=== PATIENT | male | born 1980 | race Caucasian/White ===

== ENCOUNTER 2017-01-14 14:53 | Emergency (ER) | payer BC, OTHER ==
[~2017-01-14] VITALS: Ht 180.3 cm; Wt 131.5 kg
[2017-01-14] MEDS ORDERED: ASPI1TAB PO (15:05)
[2017-01-14 15:32] LABS: BASOPHILS % (AUTO) 0.3 % (0.0-2.0); EOSINOPHILS # (AUTO) 0.1 K/uL (0.0-0.7); EOSINOPHILS % (AUTO) 0.9 % (0.0-7.0); HEMATOCRIT 45.4 % (40-50); HEMOGLOBIN 14.9 G/DL (14.0-18.0); LYMPHOCYTES # (AUTO) 1.6 K/UL (0.8-4.8); LYMPHOCYTES % (AUTO) 15.2 % (20.5-51.5); MEAN CORPUSCULAR HEMOGLOBIN 29.8 UUG (27.0-31.0); MEAN CORPUSCULAR HGB CONC 33 g/dL (32.0-37.0); MEAN CORPUSCULAR VOLUME 90.6 FL (82.0-92.0); MONOCYTES # (AUTO) 0.7 K/UL (0.1-1.30); MONOCYTES % (AUTO) 6.4 % (0.0-11.0); NEUTROPHILS # (AUTO) 8.4 K/UL (1.8-8.9); NEUTROPHILS % (AUTO) 77.2 % (38.5-71.5); PLATELET COUNT (AUTO) 213 K/UL (150-450); RED BLOOD CELL COUNT(AUTO) 5.01 MIL/UL (4.7-6.1); WHITE BLOOD COUNT (AUTO) 10.8 K/UL (4.0-11.2)
[2017-01-14 15:37] LABS: POTASSIUM 3.7 mmol/L (3.5-5.1)
--- NOTE | 2017-01-14 16:16 | NUR ---
CALLING PT [facility] AT [phone] FOR DR. MURCIA. 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
[2017-01-14] MEDS ORDERED: ASPIRIN 81 MG TAB.CHEW PO ONE (16:45)
--- NOTE | 2017-01-14 16:49 | NUR ---
Patient discharged to home in stable conditon. Written and verbal after care instructions given. Patient verbalizes understanding of instructions.PT WITH SO. PT DENIES ANY CP OR SOB AT THIS TIME.
[2017-01-14 16:50] VITALS: BP 141/86
[2017-01-14] MEDS ORDERED: ASPIRIN 81 MG TAB.CHEW ONE (16:55)
== END 2017-01-14 16:51 | disposition home or self-care (01) ==
LOC: ER 14:54
DX: F41.9 Anxiety disorder, unspecified (principal); E66.9 Obesity, unspecified; I25.2 Old myocardial infarction; Z79.82 Long term (current) use of aspirin
CPT/HCPCS: 36415; 71010; 80048; 84443; 84484; 85025; 85730; 93005; 99285; A4663; 70030-TC